=== PATIENT | male | born 1985 | race Hispanic/Latino ===

== ENCOUNTER → 2018-07-31 | Outpatient (REF) | payer OTHER, MEDICAID ==
[2018-07-31 19:37] LABS: BASO # 0.1 10^3/uL (0.0-0.2); BASO % 0.9 % (0.0-1.0); EOS # 0.1 10^3/uL (0.0-0.50); EOS % 2.3 % (0.0-3.0); HEMOGLOBIN 15.9 g/dl (13.5-17.5); LYMPH # 1.7 10^3/uL (1.5-4.5); LYMPH % 29.4 % (24.0-44.0); MEAN CORPUSCULAR HEMOGLOBIN 28.5 pg (27.0-33.0); MEAN CORPUSCULAR HGB CONC 33.1 g/dl (32.0-36.5); MEAN CORPUSCULAR VOLUME 86.2 fl (80.0-96.0); MONO # 0.6 10^3/uL (0.0-0.8); NEUTROPHILS # 3.2 10^3/uL (1.8-7.7); NEUTROPHILS % 57.2 % (36.0-66.0); PLATELET COUNT, AUTOMATED 266 10^3/uL (150-450); RED BLOOD COUNT 5.57 10^6/uL (4.30-6.10); WHITE BLOOD COUNT 5.6 10^3/uL (4.0-10.0)
[2018-07-31 19:49] LABS: HEMOGLOBIN A1c 5.1 %
[2018-07-31 19:50] LABS: ALBUMIN 4.2 GM/DL (3.2-5.2); ALT/SGPT 24 U/L (12-78); BILIRUBIN,TOTAL 0.6 MG/DL (0.2-1.0); BLOOD UREA NITROGEN 17 MG/DL (7-18); CALCIUM LEVEL 8.7 MG/DL (8.5-10.1); CARBON DIOXIDE LEVEL 32 MEQ/L (21-32); CHLORIDE LEVEL 104 MEQ/L (98-107); CHOLESTEROL LEVEL 164 MG/DL (<200); CHOLESTEROL RISK RATIO 3.153 (<5); CREATININE FOR GFR 0.88 MG/DL (0.70-1.30); GLOMERULAR FILTRATION RATE > 60.0 (>60); GLUCOSE, FASTING 72 MG/DL (70-100); HDL CHOLESTEROL 52 MG/DL (>40); LDL CHOLESTEROL 91 MG/DL (<100); NON-HDL-C 112 MG/DL; POTASSIUM SERUM 4.5 MEQ/L (3.5-5.1); SODIUM LEVEL 140 MEQ/L (136-145); TOTAL PROTEIN 7.7 GM/DL (6.4-8.2); TRIGLYCERIDES LEVEL 103 MG/DL (<150)
[2018-07-31 19:51] LABS: TOTAL 25(OH) VITAMIN D 15.5 NG/ML (30.0-100.0)
== END ==
LOC: M LAB REF 18:46
PROVIDERS: ATTEND Nurse Practitioner Family
DX: Z13.9 Encounter for screening, unspecified (principal)

== ENCOUNTER 2019-01-01 11:03 | Emergency (ER) | payer MEDICAID, OTHER ==
[~2019-01-01] VITALS: Ht 175.3 cm; Wt 72.7 kg
[2019-01-01 12:20] LABS: BASO % 0.3 % (0.0-1.0); EOS % 0.2 % (0.0-3.0); HEMATOCRIT 46.2 % (42.0-52.0); HEMOGLOBIN 15.6 g/dl (13.5-17.5); LYMPH # 0.8 10^3/uL (1.5-4.5); LYMPH % 6.5 % (24.0-44.0); MEAN CORPUSCULAR HEMOGLOBIN 29.1 pg (27.0-33.0); MEAN CORPUSCULAR HGB CONC 33.8 g/dl (32.0-36.5); MEAN CORPUSCULAR VOLUME 86.2 fl (80.0-96.0); MONO # 0.5 10^3/uL (0.0-0.8); NEUTROPHILS # 10.7 10^3/uL (1.8-7.7); NEUTROPHILS % 88.8 % (36.0-66.0); PLATELET COUNT, AUTOMATED 238 10^3/uL (150-450); RED BLOOD COUNT 5.36 10^6/uL (4.30-6.10)
[2019-01-01 12:25] LABS: ALBUMIN 3.9 GM/DL (3.2-5.2); ALT/SGPT 32 U/L (12-78); BILIRUBIN,DIRECT 0.1 MG/DL (0.0-0.2); BILIRUBIN,TOTAL 0.5 MG/DL (0.2-1.0); BLOOD UREA NITROGEN 13 MG/DL (7-18); CALCIUM LEVEL 9.5 MG/DL (8.5-10.1); CARBON DIOXIDE LEVEL 24 MEQ/L (21-32); CHLORIDE LEVEL 107 MEQ/L (98-107); CREATININE FOR GFR 1.18 MG/DL (0.70-1.30); GLOMERULAR FILTRATION RATE > 60.0 (>60); GLUCOSE, FASTING 155 MG/DL (70-100); LIPASE 114 U/L (73-393); POTASSIUM SERUM 3.9 MEQ/L (3.5-5.1); SODIUM LEVEL 141 MEQ/L (136-145); TOTAL PROTEIN 7.5 GM/DL (6.4-8.2)
[2019-01-01] MEDS ORDERED: NS 1,000 ML IV ONE (14:15)
[2019-01-01] MEDS ORDERED: BACT800T5 PO (15:09)
[2019-01-01] MEDS ORDERED: ONDA4TAB6 PO (15:10)
[2019-01-01] MEDS ORDERED: FLOM0.4C39 PO (15:10)
[2019-01-01] MEDS ORDERED: OXYC-517 PO (15:21)
--- NOTE | 2019-01-01 15:21 | REP ---
CT ABDOMEN AND PELVIS WITHOUT CONTRAST: CT abdomen and pelvis performed without oral or IV contrast. Sagittal and coronal reconstruction images are performed. Visualized lung bases are clear. The liver, spleen, adrenals, and pancreas are grossly unremarkable. There is no right hydronephrosis. There is mild left hydronephrosis caused by a 3 mm stone in the proximal left ureter. No bladder calculus is seen. There is no abdominal aortic aneurysm. There is no adenopathy. There is no free air or free fluid. There is no bowel wall thickening. In the appendix are two appendicoliths noted, one measuring 2 mm and the other 4 mm in diameter. There is no evidence of appendicitis. IMPRESSION: There is a 3 mm calculus in the proximal left ureter causing mild left hydronephrosis. No evidence of appendicitis, but there are two appendicoliths in the appendix measuring 2 and 4 mm in diameter. Electronically Signed by Juan Alberto Rawls MD 01/01/2019 04:40 P
[2019-01-01 15:32] VITALS: BP 117/68
== END 2019-01-01 15:36 | disposition home or self-care (01) ==
LOC: M ED 11:03
DX: N13.2 Hydronephrosis with renal and ureteral calculous obstruction (principal); N39.0 Urinary tract infection, site not specified; K37 Unspecified appendicitis; J45.909 Unspecified asthma, uncomplicated; Z79.899 Other long term (current) drug therapy; Z88.8 Allergy status to other drugs, medicaments and biological substances

== ENCOUNTER 2019-01-17 21:08 | Emergency (ER) | payer OTHER ==
[~2019-01-17] VITALS: Ht 175.3 cm; Wt 72.7 kg
[~2019-01-17 21:08] MED LIST: BACT800T5 PO; FLOM0.4C39 PO; ONDA4TAB6 PO; OXYC-517 PO
[2019-01-17 21:40] LABS: BASO % 0.3 % (0.0-1.0); EOS # 0.1 10^3/uL (0.0-0.50); HEMATOCRIT 42.5 % (42.0-52.0); HEMOGLOBIN 14.6 g/dl (13.5-17.5); LYMPH # 1.4 10^3/uL (1.5-4.5); LYMPH % 20.4 % (24.0-44.0); MEAN CORPUSCULAR HEMOGLOBIN 29.4 pg (27.0-33.0); MEAN CORPUSCULAR HGB CONC 34.4 g/dl (32.0-36.5); MEAN CORPUSCULAR VOLUME 85.7 fl (80.0-96.0); MONO # 0.6 10^3/uL (0.0-0.8); MONO % 8.7 % (0.0-5.0); NEUTROPHILS # 4.6 10^3/uL (1.8-7.7); NEUTROPHILS % 68.3 % (36.0-66.0); PLATELET COUNT, AUTOMATED 247 10^3/uL (150-450); RED BLOOD COUNT 4.96 10^6/uL (4.30-6.10); WHITE BLOOD COUNT 6.7 10^3/uL (4.0-10.0)
[2019-01-17 22:11] LABS: ALT/SGPT 24 U/L (12-78); BILIRUBIN,DIRECT 0.2 MG/DL (0.0-0.2); BILIRUBIN,TOTAL 0.6 MG/DL (0.2-1.0); BLOOD UREA NITROGEN 17 MG/DL (7-18); CALCIUM LEVEL 8.5 MG/DL (8.5-10.1); CARBON DIOXIDE LEVEL 28 MEQ/L (21-32); CHLORIDE LEVEL 106 MEQ/L (98-107); CREATININE FOR GFR 1.06 MG/DL (0.70-1.30); GLOMERULAR FILTRATION RATE > 60.0 (>60); GLUCOSE, FASTING 99 MG/DL (70-100); LIPASE 117 U/L (73-393); POTASSIUM SERUM 4.1 MEQ/L (3.5-5.1); SODIUM LEVEL 141 MEQ/L (136-145); TOTAL PROTEIN 7.3 GM/DL (6.4-8.2)
[2019-01-17] MEDS ORDERED: METOCLOPRAMIDE INJ 10MG/2ML VIAL (J2765) IV ONE (22:30)
[2019-01-17] MEDS ORDERED: NS 1,000 ML IV ONE (22:30)
[2019-01-17] MEDS ORDERED: MORPHINE 4 MG/ML 1ML VIAL/SYRINGE (J2270) IV ONE (22:30)
--- NOTE | 2019-01-17 23:48 | REPVR ---
EXAM: CT Abdomen and Pelvis Without Contrast EXAM DATE/TIME: 01/17/2019 10:56 PM CLINICAL HISTORY: 33 years old, male; Abdominal pain; Flank; Left; Additional info: Persistant left flank pain, stone 2 wks ago TECHNIQUE: Imaging protocol: Axial computed tomography images of the abdomen and pelvis without contrast. Coronal and sagittal reformatted images were created and reviewed. Radiation optimization: All CT scans at this facility use at least one of these dose optimization techniques: automated exposure control; mA and/or kV adjustment per patient size (includes targeted exams where dose is matched to clinical indication); or iterative reconstruction. COMPARISON: CT ABD PELVIS W/O CONTRAST 01/01/2019 1:02 PM FINDINGS: Lung bases are clear. No pleural or pericardial effusion. Within the limits of unenhanced examination, the liver, spleen, pancreas and adrenals are grossly normal. Gallbladder is normally distended with no evidence of calcified gallstones. Kidneys are grossly normal in size, contour and axis. Vague densities adjacent to the right intrarenal collecting system may represent medullary calcinosis and is similar to previous examination. No evidence of right obstructive uropathy. There is mild, asymmetric distention of the left intrarenal collecting system and left ureter. This is due 12 is a partially obstructing urolith in the distal left ureter just above the ureterovesical junction. This measures up to 2.5 mm in diameter (image #[id number]). This is less than 2 cm above the ureterovesical junction. Small and large bowel loops are grossly normal. No evidence of enteric obstruction or appendicitis. Pelvic organs are grossly normal. No free fluid in the abdomen or pelvis. IMPRESSION: Mild asymmetric hydronephrosis of the left intrarenal collecting system and left ureter. This is due to at least a partially obstructing urolith in the distal left ureter less than 2 cm above the ureterovesical junction. This measures up to 2.5 mm in diameter. No evidence of right obstructive uropathy. No other acute intra-abdominal or pelvic process on this unenhanced examination. Electronically signed by: Mikal Schmid On 01/17/2019 23:47:38 PM
[2019-01-18] MEDS ORDERED: KETOROLAC 30 MG/ML VIAL (J1885) IV ONE (00:45)
[2019-01-18] MEDS ORDERED: TAMSULOSIN 0.4 MG CAP PO ONE (00:45)
[2019-01-18] MEDS ORDERED: KETO10TAB PO (01:53)
[2019-01-18] MEDS ORDERED: FLOM0.4C39 PO (01:53)
[2019-01-18 02:05] VITALS: BP 128/78
== END 2019-01-18 02:08 | disposition home or self-care (01) ==
LOC: M ED 21:08
DX: N20.1 Calculus of ureter (principal); N13.39 Other hydronephrosis; R11.2 Nausea with vomiting, unspecified; Z88.6 Allergy status to analgesic agent; Z79.899 Other long term (current) drug therapy
CPT/HCPCS: 74176; 80048; 80076; 81001; 83690; 85025; 96361; 96374; 96375; 99284; J1885; J2270; J2765

== ENCOUNTER → 2021-12-09 | Outpatient (REF) | payer OTHER, MEDICAID ==
[~2021-12-09] MED LIST changes: +KETO10TAB PO
== END ==
LOC: M SMT 17:06
PROVIDERS: ATTEND Urology
DX: Z30.2 Encounter for sterilization (principal)